=== PATIENT | male | born 1965 | race Caucasian/White ===

== ENCOUNTER → 2017-12-09 11:26 | Outpatient (CLI) | payer MEDICARE, SELFPAY ==
[2017-12-18 17:21] LABS: Miscellaneous Test SEE SEP REPORT
== END ==
PROVIDERS: PCP Internal Medicine; Visit Provider Clinical Nurse Specialist Family Health
DX: Z79.899 Other long term (current) drug therapy (principal)

== ENCOUNTER → 2018-01-04 12:44 | Outpatient (POV) | payer MEDICARE, SELFPAY ==
[2018-01-04 13:31] VITALS: BP 156/65; PULSE 86; RESP 20; O2SAT 97; BMI 32.3
--- NOTE | 2018-01-04 13:41 | HMH.PAINSOAP ---
[facility] Pain Management SOAP Note Subjective:: This patient is a pleasant 52-year-old white male who we are treating for degenerative disc disease of lumbar spine with lumbar radiculopathy symptoms. His pain pump had to be removed due to infection. He also does undergo dialysis permanently. He is currently on oxycodone 15 mg 4 times a day. He is doing very well with this. Constipation issues have gotten better. He is more active and more functional and stable at this dose. Lucien and urine drug screen are all appropriate. Lucien #[id number]. We will refill his oxycodone 15 mg 1 tablet 4 times a day. I will give him 2 months worth of prescriptions. We will see him back in 3 months. He can berry picker machine operator his third month here in the pain clinic. Objective:: Alert and oriented ?3 in no acute distress. Motor strength of the upper and lower extremities is 5/5. There is no gross sensory deficit. Patient does have a normal gait. Assessment:: Degenerative disc disease of lumbar spine with lumbar radiculopathy symptoms. Plan:: We will refill his oxycodone 15 mg 1 tablet 4 times a day. We will given 2 months worth of prescriptions. He can berry picker machine operator his third month here in the pain clinic. We will follow-up with him in 3 months. If he has any problems or questions he is to call us in the pain clinic. He is also using [id number] medication for constipation he is doing well with this.
== END ==
PROVIDERS: Family Provider Internal Medicine Adolescent Medicine; PCP Internal Medicine; Visit Provider Anesthesiology
DX: M54.16 Radiculopathy, lumbar region (principal)
CPT/HCPCS: 99212

== ENCOUNTER → 2018-04-05 12:45 | Outpatient (POV) | payer MEDICARE, SELFPAY ==
[2018-04-05 13:12] VITALS: BP 144/70; PULSE 83; RESP 18; O2SAT 99; BMI 28.8
--- NOTE | 2018-04-05 14:07 | HMH.PAINSOAP ---
[facility] Pain Management SOAP Note Subjective:: Patient is a pleasant 52-year-old white male who we are treating for pain secondary to degenerative disc disease of the lumbar spine with lumbar adenopathy symptoms. His pain had been controlled with an intrathecal pain pump however it was removed due to infection. Patient also is undergoing dialysis 3 times a week. Patient states he still at the gym 7 days a week. Patient's currently being managed on oxycodone 50 mg 1 tab p.o. 4 times daily. He rates his pain a 3 out of 10 today. Patient's Owen and urine drug screen both reviewed and appropriate. ROS General: no recent weight change, no fever, no sleep disturbances Respiratory: no cough, no shortness of air, no recurring pulmonary infections Cardiovascular/Peripheral Vascular: No chest pain, No palpitations, no edema, no shortness of breath. Gastrointestinal: no incontinence, normal bowel movements reported Genitourinary: no incontinence Musculoskeletal: Back pain, leg pain Psychiatric: normal mood/ affect Neurological: [denies weakness in extremities], [denies balance issues] Objective:: Physical Exam General: Alert and oriented x3, no acute distress, pleasant and cooperative, [on room air] Lungs: Resps E/U, Symmetrical chest expansion, Eyes: PERRL Musculoskeletal: Flexion and extension of lumbar spine somewhat guarded secondary to pain, deep tendon reflexes normal, strength in upper and lower extremities [5/5], antalgic gait noted Neurological: speech clear, crawler dragline operator equal, no gross sensory deficits Assessment:: Degenerative disc disease of the lumbar spine with lumbar radiculopathy symptoms Plan:: We will refill this patient's oxycodone 50 mg 1 tab p.o. 4 times daily and give him 2 months worth of prescriptions. Patient's Owen and urine drug screen both reviewed and appropriate. Dr. Acosta has reviewed this chart and agrees with this plan of care. I will follow-up with him in 3 months and he can crab picker the third month in the interim. Patient's been instructed to call the office if he has any issues prior to his next appointment. Patient has been prescribed a controlled substance after being counseled on the medication, medication safety, and possible side effects. OWEN report has been obtained and reviewed prior to prescription and found to be appropriate. Opioid contract was reviewed and signed by the patient, and that they have agreed to all of the terms set forth by our compliance program. This note was dictated using voice recognition software and may contain errors or omissions
--- NOTE | 2018-04-05 14:10 | P.CONS_ITS ---
[facility] Pain Management SOAP Note Subjective:: Patient is a pleasant 52-year-old white male who we are treating for pain secondary to degenerative disc disease of the lumbar spine with lumbar adenopathy symptoms. His pain had been controlled with an intrathecal pain pump however it was removed due to infection. Patient also is undergoing dialysis 3 times a week. Patient states he still at the gym 7 days a week. Patient's currently being managed on oxycodone 50 mg 1 tab p.o. 4 times daily. He rates his pain a 3 out of 10 today. Patient's Owen and urine drug screen both reviewed and appropriate. ROS General: no recent weight change, no fever, no sleep disturbances Respiratory: no cough, no shortness of air, no recurring pulmonary infections Cardiovascular/Peripheral Vascular: No chest pain, No palpitations, no edema, no shortness of breath. Gastrointestinal: no incontinence, normal bowel movements reported Genitourinary: no incontinence Musculoskeletal: Back pain, leg pain Psychiatric: normal mood/ affect Neurological: [denies weakness in extremities], [denies balance issues] Objective:: Physical Exam General: Alert and oriented x3, no acute distress, pleasant and cooperative, [ on room air] Lungs: Resps E/U, Symmetrical chest expansion, Eyes: PERRL Musculoskeletal: Flexion and extension of lumbar spine somewhat guarded secondary to pain, deep tendon reflexes normal, strength in upper and lower extremities [5/5], antalgic gait noted Neurological: speech clear, underground utility locator equal, no gross sensory deficits Assessment:: Degenerative disc disease of the lumbar spine with lumbar radiculopathy symptoms Plan:: We will refill this patient's oxycodone 50 mg 1 tab p.o. 4 times daily and give him 2 months worth of prescriptions. Patient's Owen and urine drug screen both reviewed and appropriate. Dr. Acosta has reviewed this chart and agrees with this plan of care. I will follow-up with him in 3 months and he can picker feeder the third month in the interim. Patient's been instructed to call the office if he has any issues prior to his next appointment. Patient has been prescribed a controlled substance after being counseled on the medication, medication safety, and possible side effects. OWEN report has been obtained and reviewed prior to prescription and found to be appropriate. Opioid contract was reviewed and signed by the patient, and that they have agreed to all of the terms set forth by our compliance program. This note was dictated using voice recognition software and may contain errors or omissions
== END ==
PROVIDERS: Family Provider Internal Medicine Adolescent Medicine; PCP Internal Medicine; Visit Provider Clinical Nurse Specialist Family Health
DX: M54.16 Radiculopathy, lumbar region (principal)
CPT/HCPCS: 99212

== ENCOUNTER → 2018-06-14 11:34 | Outpatient (CLI) | payer MEDICARE, SELFPAY | PROVIDERS: PCP Clinical Nurse Specialist Family Health; Visit Provider Clinical Nurse Specialist Family Health | DX: Z79.899 Other long term (current) drug therapy (principal) | CPT/HCPCS: 36415; 80356; 80361; G0480 ==

== ENCOUNTER → 2018-07-05 13:00 | Outpatient (POV) | payer MEDICARE, SELFPAY ==
[2018-07-05 13:15] VITALS: BP 163/72; PULSE 80; RESP 18; O2SAT 95; BMI 33.0
--- NOTE | 2018-07-05 13:25 | HMH.PAINSOAP ---
[facility] Pain Management SOAP Note Subjective:: Patient is a pleasant 53-year-old white male who we are treating for pain secondary to degenerative disc disease lumbar spine with lumbar radiculopathy. Patient had an intrathecal pain pump however it was removed due to infection. Patient's currently undergoing dialysis 3 times a week. Patient states that he still goes to the gym 7 days a week. Patient is currently being medically managed with oxycodone 15 mg 1 p.o. 4 times daily. He rates his pain a 2 out of 10 today. Patient states he is doing well. He denies any side effects to the medication. Patient's OWEN #[id number] reviewed and appropriate. Patient's urine drug screen has been appropriate. ROS General: no recent weight change, no fever, no sleep disturbances Respiratory: no cough, no shortness of air, no recurring pulmonary infections Cardiovascular/Peripheral Vascular: No chest pain, No palpitations, no edema, no shortness of breath. Gastrointestinal: no incontinence, normal bowel movements reported Genitourinary: Dialysis Musculoskeletal: Back pain Psychiatric: normal mood/ affect Neurological: [denies weakness in extremities], [denies balance issues] Objective:: Physical Exam General: Alert and oriented x3, no acute distress, pleasant and cooperative, [on room air] Lungs: Resps E/U, Symmetrical chest expansion, Eyes: PERRL Musculoskeletal: Flexion and extension of lumbar spine somewhat guarded secondary to pain, deep tendon reflexes normal, strength in upper and lower extremities [5/5], slightly antalgic gait noted Neurological: speech clear, electric motor controls assembler equal, no gross sensory deficits Assessment:: Degenerative disc disease lumbar spine with lumbar radiculopathy Plan:: We will refill oxycodone 15 mg 1 4 times daily we will given 2 months worth of prescriptions and he can machine operator picker the third month in the interim we will follow-up with him in [address] Acosta has reviewed this chart and agrees with this plan of care. Patient has been prescribed a controlled substance after being counseled on the medication, medication safety, and possible side effects. OWEN report has been obtained and reviewed prior to prescription and found to be appropriate. Opioid contract was reviewed and signed by the patient, and that they have agreed to all of the terms set forth by our compliance program. This note was dictated using voice recognition software and may contain errors or omissions
== END ==
PROVIDERS: Family Provider Internal Medicine Adolescent Medicine; PCP Clinical Nurse Specialist Family Health; Visit Provider Clinical Nurse Specialist Family Health
DX: M51.16 Intervertebral disc disorders with radiculopathy, lumbar region (principal)
CPT/HCPCS: 99213

== ENCOUNTER → 2018-10-04 13:17 | Outpatient (POV) | payer MEDICARE, SELFPAY ==
[2018-10-04 13:57] VITALS: BP 88/51; PULSE 81; RESP 18; O2SAT 98; BMI 31.6
--- NOTE | 2018-10-04 15:13 | HMH.PAINSOAP ---
[facility] Pain Management SOAP Note Subjective:: Is a pleasant 53-year-old white male who presents today for medication refills. On entering the room I saw that the patient was not doing well. Patient has a yellow hue to his skin. Patient is extremely uncomfortable. Patient states he is recently been to the ER however he was told he has liver problems but was not given any follow-up. Patient's blood pressure is 88/53 at this time. We retook it and it was 93/52. Patient rates his pain 8 out of 10. He is not doing very well at this time. Patient is on oxycodone 15 mg 1 p.o. 4 times daily however due to his current state I believe we need to send him to the emergency room. ROS General: no recent weight change, no fever, no sleep disturbances Respiratory: no cough, no shortness of air, no recurring pulmonary infections Cardiovascular/Peripheral Vascular: No chest pain, No palpitations, no edema, no shortness of breath. Gastrointestinal: no new onset incontinence Genitourinary: Currently on dialysis Musculoskeletal: Back pain Psychiatric: Flat affect Neurological: Weakness, [denies balance issues] Objective:: Physical Exam General: Alert and oriented x3, no acute distress, pleasant and cooperative, [on room air] Lungs: Resps E/U, Symmetrical chest expansion, Eyes: PERRL Musculoskeletal: Flexion and extension of lumbar spine somewhat guarded secondary to pain, deep tendon reflexes normal, strength in upper and lower extremities [5/5], [abnormal gait noted] Neurological: speech clear, dinkey locomotive operator equal, no gross sensory deficits Assessment:: Degenerative disc disease lumbar spine with lumbar radiculopathy Plan:: We sent the patient to the emergency room. Patient can cherry picker operator his prescription after he is discharged from the ER. This note was dictated using voice recognition software and may contain errors or omissions
--- NOTE | 2018-10-04 15:19 | P.CONS_ITS ---
[facility] Pain Management SOAP Note Subjective:: Is a pleasant 53-year-old white male who presents today for medication refills. On entering the room I saw that the patient was not doing well. Patient has a yellow hue to his skin. Patient is extremely uncomfortable. Patient states he is recently been to the ER however he was told he has liver problems but was not given any follow-up. Patient's blood pressure is 88/53 at this time. We retook it and it was 93/52. Patient rates his pain 8 out of 10. He is not doing very well at this time. Patient is on oxycodone 15 mg 1 p.o. 4 times daily however due to his current state I believe we need to send him to the emergency room. ROS General: no recent weight change, no fever, no sleep disturbances Respiratory: no cough, no shortness of air, no recurring pulmonary infections Cardiovascular/Peripheral Vascular: No chest pain, No palpitations, no edema, no shortness of breath. Gastrointestinal: no new onset incontinence Genitourinary: Currently on dialysis Musculoskeletal: Back pain Psychiatric: Flat affect Neurological: Weakness, [denies balance issues] Objective:: Physical Exam General: Alert and oriented x3, no acute distress, pleasant and cooperative, [on room air] Lungs: Resps E/U, Symmetrical chest expansion, Eyes: PERRL Musculoskeletal: Flexion and extension of lumbar spine somewhat guarded secondary to pain, deep tendon reflexes normal, strength in upper and lower extremities [5/5], [abnormal gait noted] Neurological: speech clear, coal pulverizing operator equal, no gross sensory deficits Assessment:: Degenerative disc disease lumbar spine with lumbar radiculopathy Plan:: We sent the patient to the emergency room. Patient can picking supervisor his prescription after he is discharged from the ER. This note was dictated using voice recognition software and may contain errors or omissions
== END ==
PROVIDERS: PCP Internal Medicine Adolescent Medicine; Visit Provider Clinical Nurse Specialist Family Health
DX: M51.16 Intervertebral disc disorders with radiculopathy, lumbar region (principal)
CPT/HCPCS: 99213

== ENCOUNTER → 2018-12-06 09:59 | Outpatient (POV) | payer MEDICARE, SELFPAY ==
[2018-12-06 10:35] VITALS: BP 126/64; PULSE 94; RESP 18; O2SAT 99; BMI 33.0
--- NOTE | 2018-12-06 11:33 | HMH.PAINSOAP ---
[facility] Pain Management SOAP Note Subjective:: Patient is a pleasant 53-year-old white male who presents today for medication refills. Patient is doing much better since his last visit. Patient is continuing at dialysis. Patient has low back pain and bilateral leg pain. Patient is currently being medically managed with oxycodone 15 mg 1 p.o. 4 times daily. He denies side effects to his medication. Patient states it helps up to 80%. ROS General: no recent weight change, no fever, no sleep disturbances Respiratory: no cough, no shortness of air, no recurring pulmonary infections Cardiovascular/Peripheral Vascular: No chest pain, No palpitations, no edema, no shortness of breath. Gastrointestinal: no incontinence, normal bowel movements reported Genitourinary: no incontinence Musculoskeletal: Back pain, leg pain Psychiatric: normal mood/ affect Neurological: [denies weakness in extremities], [denies balance issues] Objective:: Physical Exam General: Alert and oriented x3, no acute distress, pleasant and cooperative, [on room air] Lungs: Resps E/U, Symmetrical chest expansion, Eyes: PERRL Musculoskeletal: Flexion and extension of lumbar spine somewhat guarded secondary to pain, deep tendon reflexes normal, strength in upper and lower extremities [5/5], [abnormal gait noted] Neurological: speech clear, motor operator equal, no gross sensory deficits Assessment:: Degenerative disc disease lumbar spine with lumbar radiculopathy Plan:: We will refill the patient's oxycodone 15 mg 1 p.o. 4 times daily. We will follow-up with the patient in 3 months reassess his symptoms at that time. Patient can picking belt operator the third month in his interim. Patient's been instructed to call the office if he has any issues prior to his next appointment. Dr. Acosta has reviewed this note and agrees with this plan of care. This note was dictated using voice recognition software and may contain errors or omissions
--- NOTE | 2018-12-06 11:36 | P.CONS_ITS ---
[facility] Pain Management SOAP Note Subjective:: Patient is a pleasant 53-year-old white male who presents today for medication refills. Patient is doing much better since his last visit. Patient is continuing at dialysis. Patient has low back pain and bilateral leg pain. Patient is currently being medically managed with oxycodone 15 mg 1 p.o. 4 times daily. He denies side effects to his medication. Patient states it helps up to 80%. ROS General: no recent weight change, no fever, no sleep disturbances Respiratory: no cough, no shortness of air, no recurring pulmonary infections Cardiovascular/Peripheral Vascular: No chest pain, No palpitations, no edema, no shortness of breath. Gastrointestinal: no incontinence, normal bowel movements reported Genitourinary: no incontinence Musculoskeletal: Back pain, leg pain Psychiatric: normal mood/ affect Neurological: [denies weakness in extremities], [denies balance issues] Objective:: Physical Exam General: Alert and oriented x3, no acute distress, pleasant and cooperative, [on room air] Lungs: Resps E/U, Symmetrical chest expansion, Eyes: PERRL Musculoskeletal: Flexion and extension of lumbar spine somewhat guarded secondary to pain, deep tendon reflexes normal, strength in upper and lower extremities [5/5], [abnormal gait noted] Neurological: speech clear, records custodian equal, no gross sensory deficits Assessment:: Degenerative disc disease lumbar spine with lumbar radiculopathy Plan:: We will refill the patient's oxycodone 15 mg 1 p.o. 4 times daily. We will follow-up with the patient in 3 months reassess his symptoms at that time. Patient can pickers material handlers the third month in his interim. Patient's been instructed to call the office if he has any issues prior to his next appointment. Dr. Acosta has reviewed this note and agrees with this plan of care. This note was dictated using voice recognition software and may contain errors or omissions
== END ==
PROVIDERS: PCP Internal Medicine Adolescent Medicine; Visit Provider Clinical Nurse Specialist Family Health
DX: M51.16 Intervertebral disc disorders with radiculopathy, lumbar region (principal)
CPT/HCPCS: 99213

== ENCOUNTER → 2019-03-07 08:49 | Outpatient (POV) | payer MEDICARE, SELFPAY ==
[2019-03-07 08:59] VITALS: BP 134/63; PULSE 91; RESP 18; O2SAT 98; BMI 31.6
--- NOTE | 2019-03-07 09:05 | HMH.PAINSOAP ---
[facility] Pain Management SOAP Note Subjective:: Patient is a pleasant 53-year-old white male who presents today for medication refill he is doing better since last visit patient has started doing hemodialysis at home 5 days a week. He has continued to have low back pain and bilateral leg pain. Patient is currently being medically managed with oxycodone 15 mg 1 p.o. 4 times daily. He denies any side effects to his medication. Patient states that it has held up to 80%. Owen appropriate. ROS General: no recent weight change, no fever, no sleep disturbances Respiratory: no cough, no shortness of air, no recurring pulmonary infections Cardiovascular/Peripheral Vascular: No chest pain, No palpitations, no edema, no shortness of breath. Gastrointestinal: no incontinence, normal bowel movements reported Genitourinary: no incontinence Musculoskeletal: Back pain, leg pain Psychiatric: normal mood/ affect Neurological: [denies weakness in extremities], [denies balance issues] Objective:: Physical Exam General: Alert and oriented x3, no acute distress, pleasant and cooperative, [on room air] Lungs: Resps E/U, Symmetrical chest expansion, Eyes: PERRL Musculoskeletal: Flexion and extension of lumbar spine somewhat guarded secondary to pain, deep tendon reflexes normal, strength in upper and lower extremities [5/5], normal gait Neurological: speech clear, rubber gasket inspector trimmer equal, no gross sensory deficits Assessment:: Degenerative disc disease lumbar spine with lumbar radiculopathy Plan:: We will refill the patient's oxycodone 15 mg 1 p.o. 4 times daily. We will follow-up with the patient in 3 months to reassess his symptoms at that time. Patient can knot picker cloth the third month in his interim. Patient's been instructed to call the office if he has any issues prior to the next appointment. Patient has been prescribed a controlled substance after being counseled on the medication, medication safety, and possible side effects. OWEN report has been obtained and reviewed prior to prescription and found to be appropriate. Opioid contract was reviewed and signed by the patient, and that they have agreed to all of the terms set forth by our compliance program. Dr. Acosta has reviewed this note and agrees with this plan of care. This note was dictated using voice recognition software and may contain errors or omissions
--- NOTE | 2019-03-07 09:08 | P.CONS_ITS ---
[facility] Pain Management SOAP Note Subjective:: Patient is a pleasant 53-year-old white male who presents today for medication refill he is doing better since last visit patient has started doing hemodialysis at home 5 days a week. He has continued to have low back pain and bilateral leg pain. Patient is currently being medically managed with oxycodone 15 mg 1 p.o. 4 times daily. He denies any side effects to his medication. Patient states that it has held up to 80%. Owen appropriate. ROS General: no recent weight change, no fever, no sleep disturbances Respiratory: no cough, no shortness of air, no recurring pulmonary infections Cardiovascular/Peripheral Vascular: No chest pain, No palpitations, no edema, no shortness of breath. Gastrointestinal: no incontinence, normal bowel movements reported Genitourinary: no incontinence Musculoskeletal: Back pain, leg pain Psychiatric: normal mood/ affect Neurological: [denies weakness in extremities], [denies balance issues] Objective:: Physical Exam General: Alert and oriented x3, no acute distress, pleasant and cooperative, [on room air] Lungs: Resps E/U, Symmetrical chest expansion, Eyes: PERRL Musculoskeletal: Flexion and extension of lumbar spine somewhat guarded secondary to pain, deep tendon reflexes normal, strength in upper and lower extremities [5/5], normal gait Neurological: speech clear, setter out equal, no gross sensory deficits Assessment:: Degenerative disc disease lumbar spine with lumbar radiculopathy Plan:: We will refill the patient's oxycodone 15 mg 1 p.o. 4 times daily. We will follow-up with the patient in 3 months to reassess his symptoms at that time. Esthela torres can picking supervisor the third month in his interim. Patient's been instructed to call the office if he has any issues prior to the next appointment. Patient has been prescribed a controlled substance after being counseled on the medication, medication safety, and possible side effects. OWEN report has been obtained and reviewed prior to prescription and found to be appropriate. Opioid contract was reviewed and signed by the patient, and that they have agreed to all of the terms set forth by our compliance program. Dr. Acosta has reviewed this note and agrees with this plan of care. This note was dictated using voice recognition software and may contain errors or omissions
[2019-03-25 06:17] LABS: Oxycodone Cofirmation WB ++POSITIVE++ ng/mL (Cutoff:5); Oxymorphone GS/MS Negative (.)
== END ==
PROVIDERS: PCP Internal Medicine Adolescent Medicine; Visit Provider Clinical Nurse Specialist Family Health
DX: M51.16 Intervertebral disc disorders with radiculopathy, lumbar region (principal); Z79.899 Other long term (current) drug therapy
CPT/HCPCS: 36415; 80307; 99212

== ENCOUNTER → 2019-05-30 09:05 | Outpatient (POV) | payer MEDICARE, SELFPAY ==
[2019-05-30 09:14] VITALS: BP 107/46; PULSE 83; RESP 18; O2SAT 98; BMI 33.0
--- NOTE | 2019-05-30 09:34 | P.CONS_ITS ---
[facility] Pain Management SOAP Note Subjective:: Patient is a pleasant 54-year-old white male who presents today for medication refills. He is doing well at this time. He rates the pain a 6 out of 10. He is doing home dialysis. He has low back pain and bilateral leg pain. He is currently being managed with oxycodone 15 mg 1 p.o. 4 times daily. He denies any side effects and states it helps up to 80%. Owen #[id number] reviewed and appropriate. Patient's drug screens have been appropriate. ROS General: no recent weight change, no fever, no sleep disturbances Respiratory: no cough, no shortness of air, no recurring pulmonary infections Cardiovascular/Peripheral Vascular: No chest pain, No palpitations, no edema, no shortness of breath. Gastrointestinal: no incontinence, normal bowel movements reported Genitourinary: no incontinence Musculoskeletal: Back pain, leg pain Psychiatric: normal mood/ affect Neurological: [denies weakness in extremities], [denies balance issues] Objective:: Physical Exam General: Alert and oriented x3, no acute distress, pleasant and cooperative, [on room air] Lungs: Resps E/U, Symmetrical chest expansion, Eyes: PERRL Musculoskeletal: Flexion and extension of lumbar spine somewhat guarded secondary to pain, deep tendon reflexes normal, strength in upper and lower extremities [5/5], [abnormal gait noted] Neurological: speech clear, teaching music lessons equal, no gross sensory deficits Assessment:: Degenerative disc disease lumbar spine with lumbar radiculopathy Plan:: We will refill the patient's oxycodone 15 mg 1 p.o. 4 times daily. 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 He is been instructed to call the office if he has any issues prior to his next appointment. Patient has been prescribed a controlled substance after being counseled on the medication, medication safety, and possible side effects. OWEN report has been obtained and reviewed prior to prescription and found to be appropriate. Opioid contract was reviewed and signed by the patient, and that they have agreed to all of the terms set forth by our compliance program. Dr. Acosta has reviewed this note and agrees with this plan of care. This note was dictated using voice recognition software and may contain errors or omissions Pain Management Hx Components *Have you ever received a pneumonia vaccine?: Yes *Have you received a flu vaccine this season?: Yes - *Social History *Occupational Status:: other *Travel in the last 8 weeks: None
== END ==
PROVIDERS: Visit Provider Clinical Nurse Specialist Family Health
DX: M51.16 Intervertebral disc disorders with radiculopathy, lumbar region (principal)
CPT/HCPCS: 99212

== ENCOUNTER → 2019-09-05 09:09 | Outpatient (POV) | payer MEDICARE, SELFPAY ==
[2019-09-05 09:36] VITALS: BP 148/52; PULSE 91; RESP 18; O2SAT 98; BMI 31.6
--- NOTE | 2019-09-05 09:53 | HMH.PAINSOAP ---
[facility] Pain Management SOAP Note Subjective:: Patient is a very pleasant 54-year-old white male who presents today for medication refills. He is doing well at this time. He rates his pain a 6 out of 10 which is his baseline. He is currently doing home dialysis which takes about 4 hours a day. He has low back pain and bilateral leg pain. Patient was on a intrathecal pain pump however due to infection it was removed. He is currently being managed with oxycodone 15 mg 1 p.o. 4 times daily. Patient's urine drug screens have been appropriate. Patient denies side effects to his medication and states it helps up to 80%. Owen #[id number] reviewed and appropriate. ROS General: no recent weight change, no fever, no sleep disturbances Respiratory: no cough, no shortness of air, no recurring pulmonary infections Cardiovascular/Peripheral Vascular: No chest pain, No palpitations, no edema, no shortness of breath. Gastrointestinal: no new onset incontinence, normal bowel movements reported Genitourinary: no new onset incontinence Musculoskeletal: Back pain and leg pain Psychiatric: normal mood/ affect Neurological: [denies new onset weakness in extremities], [denies new onset balance issues] Objective:: Physical Exam General: Alert and oriented x3, no acute distress, pleasant and cooperative, [on room air] Lungs: Resps E/U, Symmetrical chest expansion, Eyes: PERRL Musculoskeletal: Flexion and extension of Lumbar spine somewhat guarded secondary to pain, deep tendon reflexes normal, strength in upper and lower extremities [5/5], [abnormal gait noted] Neurological: speech clear, director digital sales equal, no gross sensory deficits Assessment:: Degenerative disc disease lumbar spine with lumbar radiculopathy Plan:: We will refill the patient's oxycodone 15 mg 1 p.o. 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 He is been instructed to call the office if he has any issues prior to his next appointment. Patient has been prescribed a controlled substance after being counseled on the medication, medication safety, and possible side effects. OWEN report has been obtained and reviewed prior to prescription and found to be appropriate. Opioid contract was reviewed and signed by the patient, and that they have agreed to all of the terms set forth by our compliance program. Dr. Acosta has reviewed this note and agrees with this plan of care. This note was dictated using voice recognition software and may contain errors or omissions [facility] History I have reviewed the patient's past medical history: Yes Medical History: Reports:: Diabetes Mellitus Type 2, MRSA, Renal Disease, Renal Insufficiency *Have you ever received a pneumonia vaccine?: Yes *Have you received a flu vaccine this season?: Yes Laterality Cases: Bilateral: Arthroscopy Shoulder Other Surgeries: Yes: Other (dialysis shunt left forearm) - *Social History Smoking Status: Never smoker Alcohol Intake: never *Occupational Status:: other *Travel in the last 8 weeks: None Family Hx:: Non-contributory
--- NOTE | 2019-09-05 09:56 | P.CONS_ITS ---
[facility] Pain Management SOAP Note Subjective:: Patient is a very pleasant 54-year-old white male who presents today for medication refills. He is doing well at this time. He rates his pain a 6 out of 10 which is his baseline. He is currently doing home dialysis which takes about 4 hours a day. He has low back pain and bilateral leg pain. Patient was on a intrathecal pain pump however due to infection it was removed. He is currently being managed with oxycodone 15 mg 1 p.o. 4 times daily. Patient's urine drug screens have been appropriate. Patient denies side effects to his medication and states it helps up to 80%. Owen #[id number] reviewed and appropriate. ROS General: no recent weight change, no fever, no sleep disturbances Respiratory: no cough, no shortness of air, no recurring pulmonary infections Cardiovascular/Peripheral Vascular: No chest pain, No palpitations, no edema, no shortness of breath. Gastrointestinal: no new onset incontinence, normal bowel movements reported Genitourinary: no new onset incontinence Musculoskeletal: Back pain and leg pain Psychiatric: normal mood/ affect Neurological: [denies new onset weakness in extremities], [denies new onset balance issues] Objective:: Physical Exam General: Alert and oriented x3, no acute distress, pleasant and cooperative, [on room air] Lungs: Resps E/U, Symmetrical chest expansion, Eyes: PERRL Musculoskeletal: Flexion and extension of Lumbar spine somewhat guarded secondary to pain, deep tendon reflexes normal, strength in upper and lower extremities [5/5], [abnormal gait noted] Neurological: speech clear, acid purifier equal, no gross sensory deficits Assessment:: Degenerative disc disease lumbar spine with lumbar radiculopathy Plan:: We will refill the patient's oxycodone 15 mg 1 p.o. 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 He is been instructed to call the office if he has any issues prior to his next appointment. Patient has been prescribed a controlled substance after being counseled on the medication, medication safety, and possible side effects. OWEN report has been obtained and reviewed prior to prescription and found to be appropriate. Opioid contract was reviewed and signed by the patient, and that they have agreed to all of the terms set forth by our compliance program. Dr. Acosta has reviewed this note and agrees with this plan of care. This note was dictated using voice recognition software and may contain errors or omissions [facility] History I have reviewed the patient's past medical history: Yes Medical History: Reports:: Diabetes Mellitus Type 2, MRSA, Renal Disease, Renal Insufficiency *Have you ever received a pneumonia vaccine?: Yes *Have you received a flu vaccine this season?: Yes Laterality Cases: Bilateral: Arthroscopy Shoulder Other Surgeries: Yes: Other (dialysis shunt left forearm) - *Social History Smoking Status: Never smoker Alcohol Intake: never *Occupational Status:: other *Travel in the last 8 weeks: None Family Hx:: Non-contributory
== END ==
PROVIDERS: PCP Internal Medicine Adolescent Medicine; Visit Provider Clinical Nurse Specialist Family Health
DX: M51.16 Intervertebral disc disorders with radiculopathy, lumbar region (principal); Z79.899 Other long term (current) drug therapy
CPT/HCPCS: 36415; 80356; 80361; 99212; G0480

== ENCOUNTER → 2019-12-05 09:19 | Outpatient (POV) | payer MEDICARE, SELFPAY ==
[2019-12-05 09:36] VITALS: BP 106/38; PULSE 84; RESP 18; O2SAT 99; BMI 28.6
--- NOTE | 2019-12-05 09:42 | P.CONS_ITS ---
[facility] Pain Management SOAP Note Subjective:: Patient is a pleasant 54-year-old white male who presents today for medication refills. He is being treated for degenerative disc disease lumbar spine with lumbar radiculopathy symptoms. He is currently managed with oxycodone 15 mg 1 tablet p.o. 4 times daily. Patient did have an intrathecal pain pump in the past however, it was removed secondary to infection. The patient is also on 5- day a week home hemodialysis. He denies any side effects to his medications. He says that he gets up to 80% relief with his medication regimen. The patient's Lucien #[id number] has been reviewed and is appropriate. His urine drug screens are appropriate. His morphine equivalent is 90. Review of Systems General: No recent weight changes, no fever, no sleep disturbances Respiratory: No cough, no shortness of air, no recurring pulmonary infections Cardiovascular/peripheral vascular: No chest pain, no palpitations, no edema, no shortness of breath Gastrointestinal: No new onset incontinence, normal bowel movements reported Genitourinary: No new onset incontinence Musculoskeletal: Low back pain Psychiatric: Normal mood/affect Neurological: [Denies weakness in extremities], [denies balance issues] Objective:: Physical exam General: Alert and oriented x3, no acute distress, pleasant and cooperative, [on room air] Lungs: Respirations even and unlabored, symmetrical chest expansion Eyes: PERRL Musculoskeletal: Flexion and extension of lumbar spine somewhat guarded secondary to pain, deep tendon reflexes normal, strength in upper and lower extremities [5/5], [abnormal gait noted] Neurological: Speech clear, district home economics agent equal, no gross sensory deficit Assessment:: Degenerative disc disease lumbar spine with lumbar radiculopathy symptoms Plan:: We will refill the patient's oxycodone 15 mg 1 tablet p.o. 4 times daily. 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 We will see the patient back in 3 months to reassess his symptoms. The patient has been instructed to contact the clinic if he has any concerns before his next appointment. Dr. Acosta has reviewed this note and agrees with this plan of care. This note was dictated using voice recognition software and make contain errors or omissions. [facility] History Medical History: Reports:: Diabetes Mellitus Type 2, MRSA, Renal Disease, Renal Insufficiency *Have you ever received a pneumonia vaccine?: Yes *Have you received a flu vaccine this season?: Yes Laterality Cases: Bilateral: Arthroscopy Shoulder Other Surgeries: Yes: Other (dialysis shunt left forearm) - *Social History Smoking Status: Never smoker Alcohol Intake: never *Occupational Status:: other *Travel in the last 8 weeks: None Family Hx:: Non-contributory
== END ==
PROVIDERS: Clinical Nurse Specialist Family Health; Visit Provider Clinical Nurse Specialist Family Health
DX: M51.16 Intervertebral disc disorders with radiculopathy, lumbar region (principal); Z79.891 Long term (current) use of opiate analgesic; Z76.0 Encounter for issue of repeat prescription
CPT/HCPCS: 36415; 80356; 80361; 99212; G0480

== ENCOUNTER → 2020-02-27 10:50 | Outpatient (POV) | payer MEDICARE, SELFPAY ==
--- NOTE | 2020-02-27 11:07 | HMH.VVPMSO ---
[facility] PM Virtual Visit SOAP Consent for virtual visit:: With the recent concerns about the COVID-19, we are trying to minimize exposure to you by shifting to telehealth appointments whenever possible. It restricts me from seeing you in person, but the trade off is protecting you during this pandemic. Can you see and hear me okay, and do you consent to this option? If not, I would be happy to see if we can reschedule your appointment in the future, when feasible. Has patient consented to this virtual visit?: Yes Subjective:: Patient is a pleasant 54-year-old white male who presents today for medication refills. He is being treated for degenerative disc disease lumbar spine with lumbar radiculopathy symptoms. He is currently being managed with oxycodone 15 mg 1 tab p.o. 4 times daily. Patient did have an intrathecal pain pump in the past however it was removed due to infection. He is on 5-day a week home dialysis. He denies side effects to his medication. Owen reviewed and appropriate. Urine drug screens have been appropriate. Patient gets up to 80% relief with his medication. ROS General: no recent weight change, no fever, no sleep disturbances Respiratory: no cough, no shortness of air, no recurring pulmonary infections Cardiovascular/Peripheral Vascular: No chest pain, No palpitations, no edema, no shortness of breath. Gastrointestinal: no new onset incontinence, normal bowel movements reported Genitourinary: no new onset incontinence Musculoskeletal: Low back pain Psychiatric: normal mood/ affect Neurological: [denies new onset weakness in extremities], [denies new onset balance issues] Objective:: Physical exam: Constitutional: Healthy appearing, well-developed, alert, in no acute distress Psychiatric: Judgment and insight intact, Alert and oriented x4 Mood and affect: Mood normal, affect appropriate Head and face: Inspection: Normocephalic atraumatic, extraocular movement intact Respiratory: Breathing nonlabored, nondyspneic Cardiovascular: No cyanosis, clubbing, or edema observed Skin: Head and neck: Skin with no lesions or rash observed Gait: Able to walk without assistive device: Able to heel and toe walk Neurologic: Sensation grossly intact per patient Musculoskeletal: Decreased range of motion lumbar spine Assessment:: Degenerative disc disease lumbar spine lumbar radiculopathy Plan:: We will continue on his oxycodone 15 mg 1 tab p.o. 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 He is not due medication. Dr. saenz will review this chart and send this medication and electronically when due. Patient has been prescribed a controlled substance after being counseled on the medication, medication safety, and possible side effects. OWEN report has been obtained and reviewed prior to prescription and found to be appropriate. Opioid contract was reviewed and signed by the patient, and that they have agreed to all of the terms set forth by our compliance program. This encounter was performed as a telemedicine visit via secure 2 way video and audio to minimize risk and transmission of Covid-19. The patient and we understand the limitations of a telemedicine visit including inability to check reflexes, possibly missing subtle findings on physical exam. Alternative options were presented to the patient and the patient elected to proceed with the visit. We specifically discussed risk factors for Covid-19 including age, heart or lung disease, diabetes, immunosuppression and travel. We also discussed that NSAIDs may worsen Covid-19 infection symptoms and that they should not be used to treat Covid-19 symptoms. Patient was also informed that corticosteroids in any form oral or injectable will decrease immune response and may increase risk of Covid-[address] Acosta has reviewed this patient's chart and this note and agre
== END ==
PROVIDERS: Visit Provider Clinical Nurse Specialist Family Health
DX: M51.16 Intervertebral disc disorders with radiculopathy, lumbar region (principal)
CPT/HCPCS: 99212

== ENCOUNTER → 2020-05-31 11:08 | Outpatient (POV) | payer MEDICARE, SELFPAY ==
[2020-05-31 11:30] VITALS: BP 138/88; PULSE 85; RESP 18; TEMP 36.8; O2SAT 100; BMI 31.6
--- NOTE | 2020-05-31 12:35 | HMH.PAINSOAP ---
[facility] Pain Management SOAP Note Subjective:: patient is a pleasant 85-year-old white male who presents today for medication refills. He has been treated for low back pain with lumbar radiculopathy symptoms. He is currently on oxycodone 15 mg 1 tablet p.o. 4 times daily. He denies any side effects to the medications. He says it is working well for him. He rates his pain a 5 out of 10 today. Patient's Lucien #[id number] has been reviewed and is appropriate. Patient's urine drug screens have been appropriate. His morphine equivalent is 90. Review of Systems General: No recent weight changes, no fever, no sleep disturbances Respiratory: No cough, no shortness of air, no recurring pulmonary infections Cardiovascular/peripheral vascular: No chest pain, no palpitations, no edema, no shortness of breath Gastrointestinal: No new onset incontinence, normal bowel movements reported Genitourinary: No new onset incontinence Musculoskeletal: Low back pain Psychiatric: Normal mood/affect Neurological: [Denies weakness in extremities], [denies balance issues] Objective:: Physical exam General: Alert and oriented x3, no acute distress, pleasant and cooperative, [on room air] Lungs: Respirations even and unlabored, symmetrical chest expansion Eyes: PERRL Musculoskeletal: Flexion and extension of lumbar spine somewhat guarded secondary to pain, deep tendon reflexes normal, strength in upper and lower extremities [5/5], [abnormal gait noted] Neurological: Speech clear, barrel washer machine equal, no gross sensory deficit Assessment:: Degenerative disc disease lumbar spine with lumbar radiculopathy symptoms Plan:: We will refill the patient's oxycodone 15 mg 1 tablet p.o. 4 times daily. 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 We will see him back in the clinic in 3 months to reassess his symptoms. Patient has been instructed to contact clinic if he has any concerns for his next appointment. The patient and I specifically discussed risk factors for COVID19. These risks include, but are not limited to age greater than 60, heart or lung disease, diabetes, immunosuppression, and travel. We also discussed NSAIDs may worsen COVID19 infection or symptoms. Patient should not use NSAIDs to treat COVID19 signs or symptoms. Patient was also informed that any type of corticosteroid of any form (oral or injection) will decrease the patient's immune system response and may increase the likelihood of COVID19 infection and symptoms[address] Dr. Acosta has reviewed this note and agrees with this plan of care. This note was dictated using voice recognition software and make contain errors or omissions. [facility] History I have reviewed the patient's past medical history: Yes Medical History: Reports:: Diabetes Mellitus Type 2, MRSA, Renal Disease, Renal Insufficiency *Have you ever received a pneumonia vaccine?: Yes *Have you received a flu vaccine this season?: Yes Laterality Cases: Bilateral: Arthroscopy Shoulder Other Surgeries: Yes: Other (dialysis shunt left forearm) - *Social History Smoking Status: Never smoker Alcohol Intake: never *Occupational Status:: other *Travel in the last 8 weeks: None Family Hx:: Non-contributory
== END ==
PROVIDERS: Visit Provider Clinical Nurse Specialist Family Health
DX: M51.16 Intervertebral disc disorders with radiculopathy, lumbar region (principal)
CPT/HCPCS: 99212

== ENCOUNTER → 2020-08-27 09:57 | Outpatient (POV) | payer MEDICARE, SELFPAY ==
[2020-08-27 10:26] VITALS: BP 99/41; PULSE 85; RESP 17; TEMP 36.7; O2SAT 98; BMI 30.3
--- NOTE | 2020-08-27 10:32 | P.CONS_ITS ---
[facility] Pain Management SOAP Note Subjective:: Pleasant 55-year-old white male who presents today for medication refills. He has been treated for low back pain with lumbar radiculopathy symptoms. He is currently on oxycodone 15 mg 1 tab p.o. 4 times daily. He denies side effects to his medication. Owen #[id number] reviewed and appropriate urine drug screens have been appropriate. His current morphine equivalent is 90. Patient is awaiting a kidney and has found a donor recently. He rates his pain today a 5 out of 10. ROS General: no recent weight change, no fever, no sleep disturbances Respiratory: no cough, no shortness of air, no recurring pulmonary infections Cardiovascular/Peripheral Vascular: No chest pain, No palpitations, no edema, no shortness of breath. Gastrointestinal: no new onset incontinence, normal bowel movements reported Genitourinary: no new onset incontinence Musculoskeletal: Back pain, leg pain Psychiatric: normal mood/ affect Neurological: [denies new onset weakness in extremities], [denies new onset balance issues] Objective:: Physical Exam General: Alert and oriented x3, no acute distress, pleasant and cooperative, [on room air] Lungs: Resps E/U, Symmetrical chest expansion, Eyes: PERRL Musculoskeletal: Flexion and extension of lumbar spine somewhat guarded secondary to pain, deep tendon reflexes normal, strength in upper and lower extremities [5/5], [abnormal gait noted] Neurological: speech clear, marketing director equal, no gross sensory deficits Assessment:: Degenerative disc disease lumbar spine lumbar radiculopathy symptoms Plan:: We will refill the patient's oxycodone 15 mg 1 tab p.o. 4 times daily we will give him 2 months worth medication he can last picker 1/3-month and then term we will see him back in 3 months if he goes to the hospital but in the meantime he is going to let our office know. Patient has been prescribed a controlled substance after being counseled on the medication, medication safety, and possible side effects. OWEN report has been obtained and reviewed prior to prescription and found to be appropriate. Opioid contract was reviewed and signed by the patient, and that they have agreed to all of the terms set forth by our compliance program. Dr. Acosta has reviewed this note and agrees with this plan of care. This note was dictated using voice recognition software and may contain errors or omissions [facility] History I have reviewed the patient's past medical history: Yes Medical History: Reports:: Diabetes Mellitus Type 2, MRSA, Renal Disease, Renal Insufficiency *Have you ever received a pneumonia vaccine?: No *Have you received a flu vaccine this season?: No Laterality Cases: Bilateral: Arthroscopy Shoulder Other Surgeries: Yes: Other (dialysis shunt left forearm) - *Social History Smoking Status: Never smoker Alcohol Intake: never *Occupational Status:: retired *Travel in the last 8 weeks: None Family Hx:: Non-contributory
== END ==
PROVIDERS: PCP Internal Medicine Adolescent Medicine; Visit Provider Clinical Nurse Specialist Family Health
DX: M51.16 Intervertebral disc disorders with radiculopathy, lumbar region (principal)
CPT/HCPCS: 99212

== ENCOUNTER → 2021-01-10 10:35 | Outpatient (POV) | payer MEDICARE, SELFPAY ==
[2021-01-10 11:00] VITALS: BP 139/74; PULSE 74; RESP 18; O2SAT 98; BMI 26.4
--- NOTE | 2021-01-10 11:12 | P.CONS_ITS ---
[facility] Pain Management SOAP Note Subjective:: Dr. Acosta has reviewed this note and agrees with this plan of care. This note was dictated using voice recognition software and may contain errors or omissions 55-year-old white male who presents today for follow-up. Patient rates his pain a 6 out of 10. He is recently been hospitalized for pneumonia. Patient is currently on oxycodone 15 mg 1 tab p.o. 4 times daily he is on dialysis. Patient is not doing well at this time he is gone to 3 days of dialysis versus 5. Patient states that he does better with 5 days of dialysis. He is going to transfer care from the [facility] to the [facility]. Patient has had 2 donors fall through at the [facility]. He denies side effects to the medication. [facility] #[id number] reviewed and appropriate. ROS General: no recent weight change, no fever, no sleep disturbances Respiratory: no cough, no shortness of air, no recurring pulmonary infections Cardiovascular/Peripheral Vascular: No chest pain, No palpitations, no edema, no shortness of breath. Gastrointestinal: no new onset incontinence, normal bowel movements reported Genitourinary: no new onset incontinence Musculoskeletal: Back pain, joint pain, generalized pain Psychiatric: normal mood/ affect Neurological: [denies new onset weakness in extremities], [denies new onset balance issues] Objective:: Physical Exam General: Alert and oriented x3, no acute distress, pleasant and cooperative, [on room air] Lungs: Resps E/U, Symmetrical chest expansion, Eyes: PERRL Musculoskeletal: Flexion and extension of lumbar spine somewhat guarded secondary to pain, deep tendon reflexes normal, strength in upper and lower extremities [5/5], [abnormal gait noted] Neurological: speech clear, community recreation programmer equal, no gross sensory deficits Assessment:: Degenerative disc disease lumbar spine lumbar radiculopathy, back pain Plan:: We will continue his oxycodone 15 mg 1 tab p.o. 4 times daily we will give him 2 months worth of medication and he can picker 1/3-month in the interim. We will see him back in 3 months reassess his symptoms at that time he has been instructed to call the office if he has any issues prior to his next appointment. Dr. Acosta has reviewed this note and agrees with this plan of care. This note was dictated using voice recognition software and may contain errors or omissions Patient has been prescribed a controlled substance after being counseled on the medication, medication safety, and possible side effects. OWEN report has been obtained and reviewed prior to prescription and found to be appropriate. Opioid contract was reviewed and signed by the patient, and that they have agreed to all of the terms set forth by our compliance program. [facility] History I have reviewed the patient's past medical history: Yes Medical History: Reports:: Diabetes Mellitus Type 2, MRSA, Renal Disease, Renal Insufficiency *Have you ever received a pneumonia vaccine?: Yes *Have you received a flu vaccine this season?: Yes Laterality Cases: Bilateral: Arthroscopy Shoulder Other Surgeries: Yes: Other (dialysis shunt left forearm) - *Social History Smoking Status: Never smoker Alcohol Intake: never *Occupational Status:: disabled *Travel in the last 8 weeks: None Family Hx:: Non-contributory
== END ==
PROVIDERS: Visit Provider Clinical Nurse Specialist Family Health
DX: M51.16 Intervertebral disc disorders with radiculopathy, lumbar region (principal)
CPT/HCPCS: 99212; G0463

== ENCOUNTER → 2021-04-22 09:32 | Outpatient (POV) | payer MEDICARE, SELFPAY ==
[2021-04-22 09:40] VITALS: BP 127/77; PULSE 90; RESP 18; O2SAT 96; BMI 27.1
--- NOTE | 2021-04-22 10:00 | P.CONS_ITS ---
[facility] Pain Management SOAP Note Subjective:: Patient is a 56-year-old white male who presents today for medication refills and for follow-up. He is being treated in the clinic for degenerative disc disease lumbar spine with lumbar radiculopathy symptoms and chronic back pain. Patient reports that he has been in the hospital for the last 6 weeks due to a pneumonia. He also does have a history of chronic renal disease/end-stage renal disease. He is on dialysis. He says that he has been having difficulty with pneumonia and treatment. He is now on oxygenation 2 L nasal cannula. He rates his pain a 10 out of 10 due to being in the hospital. Patient is complaining of nausea with his medications. Review of Systems General: No recent weight changes, no fever, no sleep disturbances Respiratory: Recurrent pulmonary infections, shortness of breath Cardiovascular/peripheral vascular: No chest pain, no palpitations, no edema, no shortness of breath Gastrointestinal: No new onset incontinence, normal bowel movements reported Genitourinary: No new onset incontinence Musculoskeletal: Chronic low back pain Psychiatric: Normal mood/affect Neurological: [Denies weakness in extremities], [denies balance issues] Objective:: Physical exam General: Alert and oriented x3, no acute distress, pleasant and cooperative, [on room air] Lungs: Respirations even and unlabored, symmetrical chest expansion Eyes: PERRL Musculoskeletal: Flexion and extension of lumbar spine somewhat guarded secondary to pain, deep tendon reflexes normal, strength in upper and lower extremities [5/5], [abnormal gait noted] Neurological: Speech clear, human resources temp equal, no gross sensory deficit Assessment:: Degenerative disc disease lumbar spine with lumbar radiculopathy symptoms, chronic back pain, Plan:: We will refill the patient's oxycodone 15 mg 1 tablet p.o. 4 times daily. We will give him Zofran 4 mg 1 tablet p.o. 3 times daily as needed nausea as well. We will plan for a telehealth visit in 1 month to reevaluate his symptoms. Risks and benefits of the medication have been explained in detail to the patient. The patient has been advised to consult with his/her primary care provider and pharmacist regarding drug-drug interaction of medications currently prescribed. Patient has been instructed to contact the clinic with any concerns before the next appointment. Dr. Acosta has reviewed this note and agrees with this plan of care. This note was dictated using voice recognition software and make contain errors or omissions. Patient has been prescribed a controlled substance after being counseled on the medication, medication safety, and possible side effects. OWEN report has been obtained and reviewed prior to prescription and found to be appropriate. Opioid contract was reviewed and signed by the patient, and that they have agreed to all of the terms set forth by our compliance program. [facility] History I have reviewed the patient's past medical history: Yes Medical History: Reports:: Diabetes Mellitus Type 2, MRSA, Renal Disease, Renal Insufficiency *Have you ever received a pneumonia vaccine?: Yes *Have you received a flu vaccine this season?: Yes Laterality Cases: Bilateral: Arthroscopy Shoulder Other Surgeries: Yes: Other (dialysis shunt left forearm) - *Social History Smoking Status: Never smoker Alcohol Intake: never *Occupational Status:: unemployed *Travel in the last 8 weeks: None Family Hx:: Non-contributory
== END ==
PROVIDERS: Visit Provider Clinical Nurse Specialist Family Health
DX: M51.16 Intervertebral disc disorders with radiculopathy, lumbar region (principal); G89.29 Other chronic pain
CPT/HCPCS: 99212; G0463

== ENCOUNTER → 2021-05-23 09:44 | Outpatient (POV) | payer MEDICARE, SELFPAY ==
--- NOTE | 2021-05-23 09:51 | P.CONS_ITS ---
[facility] Pain Management SOAP Note Subjective:: Patient is a pleasant 56-year-old white male who is being seen today via telehealth. Patient is currently being treated for degenerative disc disease of the lumbar spine with lumbar radiculopathy symptoms, chronic back pain. The patient has a history of chronic renal disease, end-stage renal disease, he is currently on dialysis. He has also been recently hospitalized for an extended period of time with pneumonia. We are allowing the patient to be seen via telehealth visits due to his current health conditions. He rates his pain today a 10 out of 10. The patient is managed with oxycodone 15 mg 1 tablet p.o. 4 times a day from our office as well as Zofran 4 mg 1 tablet p.o. 3 times a day. His Lucien number is [phone] he has an active morphine equivalent of 90 Objective:: unable to obtain physical exam due to telehealth visit. The patient did not appear to be in any physical distress. Assessment:: Degenerative disc disease of the lumbar spine, lumbar radiculopathy symptoms, chronic back Plan:: We will continue the patient's oxycodone 15 mg 1 tablet p.o. 4 times a day. We will provide him with 1 month worth of medication refills. We will need to schedule the patient for a telehealth visit. He is welcome to contact the clinic prior to that appointment date. Dr. Acosta has reviewed this note and agrees with this plan of care. This note was dictated using voice recognition software and make contain errors or omissions. [facility] History Medical History: Reports:: Diabetes Mellitus Type 2, MRSA, Renal Disease, Renal Insufficiency *Have you ever received a pneumonia vaccine?: Yes *Have you received a flu vaccine this season?: Yes Laterality Cases: Bilateral: Arthroscopy Shoulder Other Surgeries: Yes: Other (dialysis shunt left forearm) - *Social History Smoking Status: Never smoker Alcohol Intake: never *Occupational Status:: unemployed *Travel in the last 8 weeks: None Family Hx:: Non-contributory
== END ==
PROVIDERS: Visit Provider Family Medicine
DX: M51.16 Intervertebral disc disorders with radiculopathy, lumbar region (principal); G89.29 Other chronic pain
CPT/HCPCS: 99212; G0463

== ENCOUNTER → 2021-06-27 10:55 | Outpatient (POV) | payer MEDICARE, SELFPAY ==
--- NOTE | 2021-06-27 11:17 | HMH.VVPMSO ---
[facility] PM Virtual Visit SOAP Consent for virtual visit:: With the recent concerns about the COVID-19, we are trying to minimize exposure to you by shifting to telehealth appointments whenever possible. It restricts me from seeing you in person, but the trade off is protecting you during this pandemic. Can you see and hear me okay, and do you consent to this option? If not, I would be happy to see if we can reschedule your appointment in the future, when feasible. Has patient consented to this virtual visit?: Yes Subjective:: Patient is a 56-year-old white male who presents today via telehealth visit. Patient is being seen through telehealth due to risk of exposure of COVID-19. He does have extensive comorbidities that does place the patient at risk. He does have end-stage renal disease and is currently on dialysis. He was recently hospitalized with pneumonia. Patient is treated in the clinic for degenerative disc disease lumbar spine with lumbar radiculopathy symptoms. He says his medication are working well for him at this time. He says that it does help with his back pain and his lower extremity pain. He is managed with oxycodone 15 mg 1 tablet p.o. 4 times daily. He denies any side effects to the medicine. His Owen #[id number] has been reviewed and is appropriate. Morphine equivalent is 90. Patient rates his pain a 5 out of 10 today which is baseline for him. Patient is limited with mobility and does do a limited home stretching program to the best of his ability. Review of Systems General: No recent weight changes, no fever, no sleep disturbances Respiratory: No cough, no shortness of air, no recurring pulmonary infections Cardiovascular/peripheral vascular: No chest pain, no palpitations, no edema, no shortness of breath Gastrointestinal: No new onset incontinence, normal bowel movements reported Genitourinary: No new onset incontinence Musculoskeletal: Chronic low back pain Psychiatric: [Normal mood/affect] Neurological: [Denies weakness in extremities], [denies balance issues] Objective:: Physical exam General: Alert and oriented x3, pleasant and cooperative, Neurological: Speech clear Assessment:: Degenerative disc disease lumbar spine with lumbar radiculopathy symptoms Plan:: We will refill the patient's oxycodone 15 mg 1 tablet p.o. 4 times daily. The patient's morphine equivalent is 90. We will prescribe the patient Narcan to have available in the event of oversedation. This will be prescribed to his pharmacy and available as needed. We will plan for a in person follow-up visit with his next visit. The patient will need to undergo drug screening. Patient has been advised he will need an inpatient visit. Risks and benefits of the medication have been explained in detail to the patient. The patient has been advised to consult with his/her primary care provider and pharmacist regarding drug-drug interaction of medications currently prescribed. Patient has been prescribed a controlled substance after being counseled on the medication, medication safety, and possible side effects. OWEN report has been obtained and reviewed prior to prescription and found to be appropriate. Opioid contract was reviewed and signed by the patient, and that they have agreed to all of the terms set forth by our compliance program. Patient has been instructed to contact the clinic with any concerns before the next appointment. Dr. Acosta has reviewed this note and agrees with this plan of care. This note was dictated using voice recognition software and make contain errors or omissions. Time In:: 11:05 Time Out:: 11:15 [facility] History I have reviewed the patient's past medical history: Yes Medical History: Reports:: Diabetes Mellitus Type 2, MRSA, Renal Disease, Renal Insufficiency *Have you ever received a pneumonia vaccine?: Yes *Have you received a flu vaccine this season?: Yes Laterality Cases: Bilateral: Arthroscopy Shoulder
== END ==
PROVIDERS: Visit Provider Clinical Nurse Specialist Family Health
DX: M51.16 Intervertebral disc disorders with radiculopathy, lumbar region (principal)
CPT/HCPCS: 99212; G0463

== ENCOUNTER → 2021-08-15 10:09 | Outpatient (POV) | payer MEDICARE, SELFPAY ==
[2021-08-15 10:21] VITALS: BP 138/50; PULSE 66; RESP 18; O2SAT 100; BMI 23.2
--- NOTE | 2021-08-15 10:23 | HMH.PAINSOAP ---
[facility] Pain Management SOAP Note Subjective:: Patient is a 56-year-old white male who presents today for medication refills. The patient is being treated for chronic low back pain. We do telehealth visits with the patient, as he is at a high risk for Covid exposure. He does use oxygen chronic, and does have a history of frequent pneumonia along with end-stage renal disease. Patient is managed with oxycodone 15 mg 1 tablet p.o. 4 times daily. Patient does have chronic pain throughout his entire body. He is managed with higher dose of oxycodone that has worked well for him in recent months. He says that it does take his pain down to a 6 out of 10 which is baseline. He does have a morphine equivalent of 90 with Narcan being prescribed to the patient as well. His Owen #[id number] has been reviewed and is appropriate. Drug screens are appropriate. Review of Systems General: No recent weight changes, no fever, no sleep disturbances Respiratory: No cough, no shortness of air, no recurring pulmonary infections Cardiovascular/peripheral vascular: No chest pain, no palpitations, no edema, no shortness of breath Gastrointestinal: No new onset incontinence, normal bowel movements reported Genitourinary: No new onset incontinence Musculoskeletal: Low back pain with radiation into bilateral lower extremities Psychiatric: [Normal mood/affect] Neurological: [Denies weakness in extremities], [denies balance issues] Objective:: Physical exam General: Alert and oriented x3, no acute distress, pleasant and cooperative Lungs: Respirations even and unlabored, symmetrical chest expansion Eyes: PERRL Musculoskeletal: Flexion and extension of lumbar [spine] somewhat guarded secondary to pain, [antalgic gait noted] Neurological: Speech clear, no gross sensory deficit Assessment:: Degenerative disc disease lumbar spine with lumbar radiculopathy symptoms Plan:: We will refill the patient's oxycodone 50 mg 1 tablet p.o. 4 times daily. Patient has been advised he does have a high morphine equivalent and is at a high risk for oversedation with his medication regimen. Narcan will be ordered for the patient as well. Risks and benefits of the medication have been explained in detail to the patient. The patient does understand the risk of dependence on the medication when given over a prolonged period. Patient has been advised of risks of oversedation with the prescribed medication. Narcan has been offered to the paitent in the event of oversedation. Patient has been advised that a family member should also be educated regarding administration of Narcan. The patient has been advised to consult with his/her primary care provider and pharmacist regarding drug-drug interaction of medications currently prescribed. Patient has been prescribed a controlled substance after being counseled on the medication, medication safety, and possible side effects. OWEN report has been obtained and reviewed prior to prescription and found to be appropriate. Opioid contract was reviewed and signed by the patient, and that they have agreed to all of the terms set forth by our compliance program. Patient has been instructed to contact the clinic with any concerns before the next appointment. Dr. Acosta has reviewed this note and agrees with this plan of care. This note was dictated using voice recognition software and make contain errors or omissions. [facility] History I have reviewed the patient's past medical history: Yes Medical History: Reports:: Diabetes Mellitus Type 2, MRSA, Renal Disease, Renal Insufficiency *Have you ever received a pneumonia vaccine?: No *Have you received a flu vaccine this season?: Yes Laterality Cases: Bilateral: Arthroscopy Shoulder Other Surgeries: Yes: Other (dialysis shunt left forearm) - *Social History Smoking Status: Never smoker Alcohol Intake: never *Occupational Status:: unemployed *Travel in the last 8 weeks: None
[2021-08-28 11:38] LABS: 6-Acetylmorphine Negative (.); Amphetamines IA Negative ng/mL (Cutoff:50); Barbituates IA Negative ug/mL (Cutoff:0.1); Benzodiazepines IA Negative ng/mL (Cutoff:20); Cocaine & Metabolites IA Negative ng/mL (Cutoff:25); Codeine Negative (.); Dihydrocodeine Negative (.); Hydrocodone Negative (.); Methadone IA Negative ng/mL (Cutoff:25); Morphine Negative (.); Opiate Confirmation Negative (.); Opiates IA Negative ng/mL (Cutoff:5); Oxycodone IA ++POSITIVE++ ng/mL (Cutoff:5); Phencyclidine IA Negative ng/mL (Cutoff:8); Propoxyphene IA Negative ng/mL (Cutoff:50); THC (marijauna) metabolite IA Negative ng/mL (Cutoff:5)
== END ==
PROVIDERS: Visit Provider Clinical Nurse Specialist Family Health
DX: M51.16 Intervertebral disc disorders with radiculopathy, lumbar region (principal); Z79.891 Long term (current) use of opiate analgesic
CPT/HCPCS: 36415; 80307; 99212; G0463